=== PATIENT | male | born 1995 | race Caucasian/White ===

== ENCOUNTER 2021-04-25 18:47 | Emergency (ER) | payer MEDICAID, SELFPAY ==
[~2021-04-25] VITALS: Ht 182.9 cm; Wt 128.6 kg
[~2021-04-25 18:47] MED LIST: HYDR1TAB PO; NO HOME MEDS
[2021-04-25 21:48] LABS: BASOPHILS % (AUTO) 0.4 % (0-1); EOSINOPHILS # (AUTO) 0.1 X10'3 (0-0.9); EOSINOPHILS % (AUTO) 1.2 % (0-6); HEMATOCRIT 47.4 % (42.0-52.0); HEMOGLOBIN 16.6 g/dl (14.0-17.9); LYMPHOCYTES # (AUTO) 3.7 X10'3 (1.1-4.8); MEAN CORPUSCULAR HEMOGLOBIN 34.2 PG (27.0-31.0); MEAN CORPUSCULAR VOLUME 97.7 FL (78-98); MEAN PLATELET VOLUME 8.8 FL (7.4-10.4); MONOCYTES # (AUTO) 0.7 X10'3 (0-0.9); MONOCYTES % (AUTO) 8.1 % (2-12); NEUTROPHILS # (AUTO) 4.1 X10'3 (1.8-7.7); NEUTROPHILS % (AUTO) 47.3 % (42-75); PLATELET COUNT 256 X10'3 (140-440); RED BLOOD COUNT 4.85 X10'6 (4.70-6.10); RED CELL DISTRIBUTION WIDTH 13.1 % (11.5-14.5); WHITE BLOOD COUNT 8.7 X10'3 (4.5-11.0)
[2021-04-25 21:50] LABS: URINE AMPHETAMINE SCREEN NEGATIVE (Neg); URINE BARBITUATE SCREEN NEGATIVE (Neg); URINE BENZODIAZEPINES SCREEN NEGATIVE (Neg); URINE CANNABINOID SCREEN NEGATIVE (Neg); URINE COCAINE SCREEN NEGATIVE (Neg); URINE METHADONE SCREEN NEGATIVE (Neg); URINE OPIATE SCREEN NEGATIVE (Neg); URINE PHENCYCLIDINE SCREEN NEGATIVE (Neg)
[2021-04-25 21:57] LABS: ALANINE AMINOTRANSFERASE 41 U/L (12-78); ALBUMIN 4.2 G/DL (3.4-5.0); ALBUMIN/GLOBULIN RATIO 1.1 (1.1-1.5); ALKALINE PHOSPHATASE 74 IU/L (46-116); ANION GAP 11 (8-16); ASPARTATE AMINO TRANSFERASE 21 U/L (10-37); BILIRUBIN,TOTAL 0.9 MG/DL (0.1-1.0); BLOOD UREA NITROGEN 18 MG/DL (7-18); BUN/CREATININE RATIO 17.5 (5.4-32.0); CALCIUM 8.8 MG/DL (8.5-10.1); CHLORIDE 106 MMOL/L (99-107); CREATININE 1.03 MG/DL (0.60-1.10); GLUCOSE 93 MG/DL (70-104); SODIUM 144 MMOL/L (135-145); TOTAL PROTEIN 8.1 G/DL (6.4-8.2); eGFR 87 ML/MIN
[2021-04-25 22:00] LABS: ETHANOL < 0.010 GM/DL (0.0-0.010)
--- NOTE | 2021-04-25 22:00 | NUR ---
Pt on phone talking to mother. No complaints voiced or reported.
--- NOTE | 2021-04-26 00:05 | NUR ---
Pt asleep. No complaints voiced or reported.
[2021-04-26] MEDS ORDERED: NICO-687 TOP (05:58)
[2021-04-26] MEDS ORDERED: NALT50TA PO (05:58)
[2021-04-26] MEDS ORDERED: SUMA50TA17 (05:58)
[2021-04-26] MEDS ORDERED: [UNRECOGNIZED DRUG - CODE] PO (05:58)
[2021-04-26] MEDS ORDERED: FENO134C PO (05:58)
[2021-04-26] MEDS ORDERED: ALBU90AE2 IH (05:58)
[2021-04-26 06:43] VITALS: BP 132/78
--- NOTE | 2021-04-26 07:24 | NUR ---
PACKET FAXED TO [facility]
--- NOTE | 2021-04-26 09:12 | NUR ---
PT RESTING ON BACK RR EQUAL AND UNLABORED
--- NOTE | 2021-04-26 16:21 | NUR ---
PT READY FOR DC. PTS MOM ON HER WAY TO PICK HIM UP. ETA APROX 20-30MIN
== END 2021-04-26 16:44 | disposition home or self-care (01) ==
LOC: ER 18:47
DX: R45.851 Suicidal ideations (principal); Z20.822 Contact with and (suspected) exposure to COVID-19; Z79.899 Other long term (current) drug therapy
CPT/HCPCS: 36415; 80053; 80305; 80320; 85025; 87635; 99285; C9803

== ENCOUNTER 2022-06-29 17:55 | Emergency (ER) | payer MEDICAID ==
[~2022-06-29] VITALS: Ht 177.8 cm; Wt 127.3 kg
[~2022-06-29 17:55] MED LIST changes: +ALBU90AE2 IH; +FENO134C21 PO; +NALT50TA PO; +NICO-687 TOP; +SUMA50TA17; +[UNRECOGNIZED DRUG - CODE] PO
[2022-06-29 18:06] VITALS: BP 184/94
[2022-06-29 18:57] LABS: CLARITY,URINE CLEAR (Clear); COLOR,URINE YELLOW (Yellow); GLUCOSE, URINE NEGATIVE (Neg); KETONES,URINE NEGATIVE (Neg); LEUKOCYTE ESTERASE ,URINE NEGATIVE (Neg); NITRITES, URINE NEGATIVE (Neg); OCCULT BLOOD,URINE TRACE-INTACT (Neg); PH,URINE 5.5 (4.8-8.0); PROTEIN,URINE NEGATIVE (Neg); UROBILINOGEN,URINE 0.2 E.U/dL (0.2-1.0)
[2022-06-29 19:15] LABS: UA COLLECTION TYPE CLN CATCH MIDSTREAM
[2022-06-29 19:20] LABS: WBC,URINE NONE SEEN /HPF (0-4)
[2022-06-29 19:21] LABS: BACTERIA,URINE NONE SEEN /HPF (Neg); RBC,URINE NONE SEEN /HPF (0-2); SQUAMOUS EPITHELIAL CELL,UR NONE SEEN /LPF (FEW)
[2022-06-30] MEDS ORDERED: IBUP-1986 PO (10:54)
== END 2022-06-30 00:18 | disposition left against medical advice (07) ==
LOC: ER 17:56
DX: M54.59 Other low back pain (principal); Z53.21 Procedure and treatment not carried out due to patient leaving prior to being seen by health care provider
CPT/HCPCS: 81001

== ENCOUNTER 2022-06-30 06:52 | Emergency (ER) | payer MEDICAID ==
[~2022-06-30] VITALS: Ht 177.8 cm; Wt 127.0 kg
[2022-06-30 07:52] LABS: CLARITY,URINE CLEAR (Clear); COLOR,URINE YELLOW (Yellow); GLUCOSE, URINE NEGATIVE (Neg); KETONES,URINE NEGATIVE (Neg); LEUKOCYTE ESTERASE ,URINE NEGATIVE (Neg); NITRITES, URINE NEGATIVE (Neg); OCCULT BLOOD,URINE NEGATIVE (Neg); PROTEIN,URINE NEGATIVE (Neg)
[2022-06-30 07:59] LABS: UA COLLECTION TYPE VOIDED
[2022-06-30] MEDS ORDERED: IBUP-1986 PO (10:54)
[2022-06-30 11:00] VITALS: BP 140/77
== END 2022-06-30 11:05 | disposition home or self-care (01) ==
LOC: ER 06:52
DX: S39.011A Strain of muscle, fascia and tendon of abdomen, initial encounter (principal); R10.84 Generalized abdominal pain; R05.9 Cough, unspecified; Z79.899 Other long term (current) drug therapy; X58.XXXA Exposure to other specified factors, initial encounter; Y93.89 Activity, other specified; Y92.89 Other specified places as the place of occurrence of the external cause; Y99.8 Other external cause status
CPT/HCPCS: 74176; 81003; 99284